=== PATIENT | female | born 1970 | race Hispanic/Latino ===

== ENCOUNTER 2019-09-07 22:11 | Emergency (ER) | payer SELFPAY ==
[2019-09-08] MEDS ORDERED: predniSONE 20 MG TAB PO ONE (01:43)
[2019-09-08] MEDS ORDERED: AMOXICILLIN/K CLAV 875/125MG TAB PO ONE (01:43)
[2019-09-08] MEDS ORDERED: IBUPROFEN 600 MG TAB PO ONE (01:43)
--- NOTE | 2019-09-08 01:43 | Emergency Department Report ---
- General Chief Complaint: Upper Respiratory Infection Stated Complaint: FEVER COUGH HEADACHE SORE THROAT CHILLS Source: patient Mode of arrival: Ambulatory Limitations: No Limitations - History of Present Illness Initial Comments: Patient is a 49-year-old white female with no past medical history who presents to the ED with complaint of acute onset persistent frontal sinus pressure, headache, nasal and sinus congestion, sore throat, persistent cough with white phlegm for the last 5 days. Patient denies dizziness, chest pain, shortness of breath, fever, chills, nausea, vomiting, diarrhea, abdominal pain, dysuria, urinary frequency urgency, syncope or seizures. Patient states that she has been taking [id number] medication with no relief. MD Complaint: cough, sore throat, rhinorrhea, nasal congestion, sinus pain -: Sudden, days(s) (5) Severity: severe Severity scale (0 -10): 7 Quality: sharp, aching Consistency: constant Improves With: nothing Worsens With: nothing Context: sick contacts Associated Symptoms: denies other symptoms, myalgias, headache, rhinorrhea, nasal congestion, sore throat, cough. denies: fever, chills, diaphoresis, chest pain, shortness of breath, abdominal pain, nausea, vomiting, diarrhea, dysuria, rash, right sweats, weight loss, hoarseness Treatments Prior to Arrival: none - Related Data Previous Rx's Medication Instructions Recorded Last Taken Type Hydrocodone Bit/Acetaminophen 1 - 2 each PO Q4H PRN #20 tablet 07/11/13 Unknown Rx [Lortab 5-500 Tablet] methOCARBAMOL [Robaxin] 500 mg PO BID #30 tab 07/11/13 Unknown Rx Amoxicillin/Potassium Clav 1 each PO Q12H #20 tablet 09/08/19 Unknown Rx [Augmentin 875-125 Tablet] Benzonatate [Tessalon Perles] 100 mg PO Q8HR #30 capsule 09/08/19 Unknown Rx Cetirizine HCl [Zyrtec 10mg tab] 10 mg PO DAILY #30 tablet 09/08/19 Unknown Rx Ibuprofen [Motrin 800 MG tab] 800 mg PO TID #30 tablet 09/08/19 Unknown Rx methylPREDNISolone [Medrol 4MG 4 mg PO DAILY #21 tab.ds.pk 09/08/19 Unknown Rx DOSEPAK (21 tabs)] Allergies Allergy/AdvReac Type Severity Reaction Status Date / Time No Known Allergies Allergy Unverified 07/11/13 12:11 ED Review of Systems ROS: Stated complaint: FEVER COUGH HEADACHE SORE THROAT CHILLS Other details as noted in HPI Constitutional: denies: chills, fever Eyes: denies: eye pain, eye discharge, vision change ENT: throat pain, congestion. denies: ear pain Respiratory: cough. denies: shortness of breath, wheezing Cardiovascular: denies: chest pain, palpitations Endocrine: no symptoms reported Gastrointestinal: denies: abdominal pain, nausea, diarrhea Genitourinary: denies: urgency, dysuria, discharge Musculoskeletal: denies: back pain, joint swelling, arthralgia Skin: denies: rash, lesions Neurological: headache. denies: weakness, paresthesias Psychiatric: denies: anxiety, depression Hematological/Lymphatic: denies: easy bleeding, easy bruising ED Past Medical Hx - Past Medical History Previous Medical History?: Yes Hx Hypertension: Yes - Surgical History Past Surgical History?: No - Social History Smoking Status: Never Smoker Substance Use Type: None - Medications Home Medications: Home Medications Medication Instructions Recorded Confirmed Last Taken Type Hydrocodone Bit/Acetaminophen 1 - 2 each PO Q4H PRN #20 tablet 07/11/13 Unknown Rx [Lortab 5-500 Tablet] methOCARBAMOL [Robaxin] 500 mg PO BID #30 tab 07/11/13 Unknown Rx Amoxicillin/Potassium Clav 1 each PO Q12H #20 tablet 09/08/19 Unknown Rx [Augmentin 875-125 Tablet] Benzonatate [Tessalon Perles] 100 mg PO Q8HR #30 capsule 09/08/19 Unknown Rx Cetirizine HCl [Zyrtec 10mg tab] 10 mg PO DAILY #30 tablet 09/08/19 Unknown Rx Ibuprofen [Motrin 800 MG tab] 800 mg PO TID #30 tablet 09/08/19 Unknown Rx methylPREDNISolone [Medrol 4MG 4 mg PO DAILY #21 tab.ds.pk 09/08/19 Unknown Rx DOSEPAK (21 tabs)] ED Physical Exam - General Limitations: No Limitations General appearance: alert, in no apparent distress - Head Head exam: Present: atraumatic, normocephalic, normal inspection - Eye Eye exam: Present: normal appearance, PERRL, EOMI Pupils: Present: normal accommodation - ENT ENT exam: Present: mucous membranes moist, TM's normal bilaterally, normal external ear exam, other (Grossly congested nasal passages; palpable frontal sinus tenderness and erythematous oropharynx and tonsils) - Neck Neck exam: Present: normal inspection, full ROM, lymphadenopathy - Respiratory Respiratory exam: Present: normal lung sounds bilaterally. Absent: respiratory distress, wheezes, rales, rhonchi, chest wall tenderness, accessory muscle use, decreased breath sounds - Cardiovascular Cardiovascular Exam: Present: regular rate, normal rhythm, normal heart sounds. Absent: systolic murmur, diastolic murmur, rubs, gallop - GI/Abdominal GI/Abdominal exam: Present: soft, normal bowel sounds. Absent: tenderness, guarding, rebound, hyperactive bowel sounds, hypoactive bowel sounds, organomegaly - Extremities Exam Extremities exam: Present: normal inspection, full ROM, normal capillary refill - Back Exam Back exam: Present: normal inspection, full ROM. Absent: tenderness, CVA tenderness (R), muscle spasm, paraspinal tenderness, vertebral tenderness - Neurological Exam Neurological exam: Present: alert, oriented X3, CN II-XII intact, normal gait, reflexes normal - Psychiatric Psychiatric exam: Present: normal affect, normal mood - Skin Skin exam: Present: warm, dry, intact, normal color. Absent: rash ED Course Vital Signs 09/07/19 09/08/19 23:29 00:50 Temperature 99.2 F Pulse Rate 104 H 98 H Respiratory 18 Rate Blood Pressure 132/92 O2 Sat by Pulse 100 98 Oximetry ED Medical Decision Making - Medical Decision Making This is a 49-year-old female with no past medical history who presented to the ED with complaint of acute onset persistent nasal and sinus congestion, frontal sinus pressure and headache, dry cough, diffuse body aches for 5 days. In the ED, patient is alert and oriented x3 and is not in any distress. Patient was treated for pain in the ED and was discharged home on medications. Patient was advised to follow-up with her primary care physician in 7 to 10 days for reevaluation. Patient was also advised return to the ED immediately if symptoms get worse. - Differential Diagnosis sinusitis; URI; bronchitis; Strep Pharyngitis; Pneumonia Critical care attestation.: If time is entered above; I have spent that time in minutes in the direct care of this critically ill patient, excluding procedure time. ED Disposition Clinical Impression: Acute upper respiratory infection Acute bronchitis Qualifiers: Bronchitis organism: unspecified organism Qualified Code(s): J20.9 - Acute bronchitis, unspecified Acute sinusitis Qualifiers: Sinusitis location: unspecified location Recurrence: non-recurrent Qualified Code(s): J01.90 - Acute sinusitis, unspecified Disposition: TO HOME OR SELFCARE Is pt being admited?: No Does the pt Need Aspirin: No Condition: Stable Instructions: Acute Bronchitis (ED), Upper Respiratory Infection (ED), Acute Bacterial Rhinosinusitis (ED) Additional Instructions: Take medication with food, drink plenty of fluids and follow-up with your primary care physician in 7 to 10 days for reevaluation. Return to the ED immediately if symptoms get worse. Prescriptions: Amoxicillin/Potassium Clav [Augmentin 875-125 Tablet] 1 each PO Q12H #20 tablet methylPREDNISolone [Medrol 4MG DOSEPAK (21 tabs)] 4 mg PO DAILY #21 tab.ds.pk Ibuprofen [Motrin 800 MG tab] 800 mg PO TID #30 tablet Benzonatate [Tessalon Perles] 100 mg PO Q8HR #30 capsule Cetirizine HCl [Zyrtec 10mg tab] 10 mg PO DAILY #30 tablet Referrals: [facility] [Outside] - 3-5 Days Time of Disposition: 01:40 Print Language: LIBERIAN
[2019-09-08 05:06] VITALS: BP 130/87
== END 2019-09-08 02:13 | disposition home or self-care (01) ==
LOC: ED 22:11
DX: J01.10 Acute frontal sinusitis, unspecified (principal); J20.9 Acute bronchitis, unspecified; I10 Essential (primary) hypertension; Z79.1 Long term (current) use of non-steroidal anti-inflammatories (NSAID); Z79.2 Long term (current) use of antibiotics; Z79.899 Other long term (current) drug therapy
CPT/HCPCS: 87116; 87430; 99283; J7512